=== PATIENT | male | born 2000 | race African-American/Black ===

== ENCOUNTER 2023-11-22 17:09 | Emergency (ER) | payer OTHER ==
[2023-11-22 17:23] VITALS: BP 130/89; O2SAT 100
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
== END 2023-11-22 19:16 | disposition home or self-care (01) ==
LOC: ED 17:09
DX: S16.1XXA Strain of muscle, fascia and tendon at neck level, initial encounter (principal); S39.012A Strain of muscle, fascia and tendon of lower back, initial encounter; V49.49XA Driver injured in collision with other motor vehicles in traffic accident, initial encounter; Y93.89 Activity, other specified
CPT/HCPCS: 99283; 99284